=== PATIENT | female | born 1980 | race Caucasian/White ===

== ENCOUNTER 2016-09-25 22:12 | Emergency (ER) | payer SELFPAY ==
[~2016-09-25] VITALS: Ht 157.5 cm; Wt 60.4 kg
[2016-09-25] MEDS ORDERED: GABAPENTIN300 MG PO (22:52)
[2016-09-25] MEDS ORDERED: CARISOPRODOL350 MG PO (22:53)
[2016-09-25] MEDS ORDERED: OXYMORPHONE HCL20 MG PO (22:53)
[2016-09-25] MEDS ORDERED: OXYCODONE HCL30 MG PO (22:54)
[2016-09-25 23:18] LABS: CHLORIDE 106 mEq/L (99-109)
[2016-09-25 23:19] LABS: POTASSIUM 4.3 mEq/L (3.7-5.4); SODIUM 141 mEq/L (136-147)
[2016-09-25 23:21] LABS: GLUCOSE 94 mg/dL (70-99)
[2016-09-25 23:22] LABS: ANION GAP 11 MEQ/L (2-14)
[2016-09-25 23:23] LABS: TOTAL BILIRUBIN 0.8 mg/dL (0.0-1.0)
[2016-09-25 23:24] LABS: SERUM ETHYL ALCOHOL < 10 mg/dL
[2016-09-25 23:25] LABS: ALKALINE PHOSPHATASE 58 IU/L (3-129); GFR ESTIMATE (CALCULATED) > 59 mL/min/
[2016-09-25 23:27] LABS: BASOPHIL COUNT 0.1 K/uL (0-0.1); EOSINOPHIL (%) 2.3 % (0-5); EOSINOPHIL COUNT 0.2 K/uL (0-0.3); HEMATOCRIT 40.4 % (36.0-46.0); IMMATURE GRANULOCYTE (%) 0.2 % (0.0-0.7); INSTRUMENT ABS NEUTROPHIL CT 6.4 K/uL; LYMPHOCYTE COUNT 1.3 K/uL (1.0-2.8); MCH 29.8 PG (29.0-34.0); MCHC 33.7 G/DL (30.0-36.0); MCV 88.4 FL (83-99); MEAN PLAT.VOLUME 9.1 uM^3 (9.5-12.4); MONOCYTE (%) 5.3 % (3-12); MONOCYTE COUNT 0.4 K/uL (0-0.8); NEUTROPHIL (%) 75.9 % (45-76); NEUTROPHIL COUNT 6.4 K/uL (1.8-6.4); PLATELET COUNT 286 K/uL (156-360); RBC DIS.WIDTH-CV 13.4 % (11.8-14.6); RBC DIS.WIDTH-SD 43.6 % (39-53); RED BLOOD COUNT 4.57 M/uL (3.80-5.20); UREA NITROGEN (BUN) 13 mg/dL (9-23); WHITE BLOOD COUNT 8.4 K/uL (4.1-10.2)
[2016-09-25 23:28] LABS: SALICYLATE < 5.0 MG/DL (15-30)
[2016-09-25 23:29] LABS: LIPASE 14 U/L (1.0-51.0)
[2016-09-25 23:35] LABS: POINT-OF-CARE METER ID UU13113702
[2016-09-26 03:01] VITALS: BP 107/69
== END 2016-09-26 03:02 | disposition home or self-care (01) ==
LOC: EME 22:12
PROVIDERS: Emergency Medicine
DX: F32.9 Major depressive disorder, single episode, unspecified (principal); F41.1 Generalized anxiety disorder; T42.8X1A Poisoning by antiparkinsonism drugs and other central muscle-tone depressants, accidental (unintentional), initial encounter; G89.29 Other chronic pain; F17.200 Nicotine dependence, unspecified, uncomplicated
CPT/HCPCS: 80053; 82948; 83690; 85025; 90839; 93005; 99281; 99285; G0480; J2250; J7030